=== PATIENT | male | born 1955 | race Caucasian/White ===

== ENCOUNTER 2025-04-08 12:20 | Emergency (ER) | payer MEDICARE, BC | END 2025-04-08 15:09 | disposition left against medical advice (07) | LOC: MW.ED 12:20 | DX: Z53.21 Procedure and treatment not carried out due to patient leaving prior to being seen by health care provider (principal) ==

== ENCOUNTER 2025-04-08 17:21 | Emergency (ER) | payer MEDICARE, BC | END 2025-04-08 20:10 | disposition home or self-care (01) | LOC: MW.ED 17:21 | DX: Z00.00 Encounter for general adult medical examination without abnormal findings (principal); Z75.3 Unavailability and inaccessibility of health-care facilities; Z79.899 Other long term (current) drug therapy | CPT/HCPCS: 51798; 99282; 99283-25 ==